=== PATIENT | female | born 2000 | race Caucasian/White ===

== ENCOUNTER → 2021-03-27 | Outpatient (CLI) | payer OTHER ==
--- NOTE | 2021-03-28 06:19 | REP ---
INDICATION: IRREGULAR MENSES COMPARISON: None. TECHNIQUE: Transabdominal pelvic ultrasound. FINDINGS: Bladder is unremarkable and measures 6.2 x 5.7 x 8.4 cm. Normal anteverted uterus measures 6.6 x 2.3 x 3.8 cm. The endometrial complex measures 4.8 mm thickness. No discrete uterine or endometrial abnormalities are appreciated. Bilateral ovaries are normal in appearance. Right ovary measures 2.7 x 1.5 x 1.9 cm. Left ovary measures 2.2 x 1.8 x 2.0 cm. IMPRESSION: Normal pelvic ultrasound Maida <Electronically signed by Lasha Cody > 03/28/21 [id number]
== END ==
LOC: M RAD 12:49
PROVIDERS: ATTEND Nurse Practitioner Family
DX: N92.6 Irregular menstruation, unspecified (principal)

== ENCOUNTER → 2022-01-08 | Outpatient (CLI) | payer OTHER ==
[2022-01-08 10:03] LABS: HEMATOCRIT 40.9 % (36.0-47.0); HEMOGLOBIN 13.5 g/dl (12.0-15.5); MEAN CORPUSCULAR HEMOGLOBIN 29.1 pg (27.0-33.0); MEAN CORPUSCULAR VOLUME 88.1 fl (80.0-96.0); PLATELET COUNT, AUTOMATED 296 10^3/uL (150-450); RED BLOOD COUNT 4.64 10^6/uL (4.00-5.40); WHITE BLOOD COUNT 7.9 10^3/uL (4.0-10.0)
[2022-01-08 10:33] LABS: ALBUMIN 3.9 GM/DL (3.2-5.2); ALT/SGPT 33 U/L (12-78); BILIRUBIN,TOTAL 0.4 MG/DL (0.2-1.0); BLOOD UREA NITROGEN 22 MG/DL (7-18); C REACTIVE PROTEIN QUANTITATIV 1.09 MG/DL (0.00-0.30); CALCIUM LEVEL 9.4 MG/DL (8.5-10.1); CARBON DIOXIDE LEVEL 28 MEQ/L (21-32); CHLORIDE LEVEL 107 MEQ/L (98-107); GLUCOSE, FASTING 94 MG/DL (70-100); POTASSIUM SERUM 4.2 MEQ/L (3.5-5.1); SODIUM LEVEL 140 MEQ/L (136-145); TOTAL PROTEIN 7.1 GM/DL (6.4-8.2)
[2022-01-08 10:34] LABS: ERYTHROCYTE SEDIMENTATION RATE 27 mm/hr (0-20)
== END ==
LOC: M LAB 09:25
PROVIDERS: ATTEND Nurse Practitioner Family
DX: R19.4 Change in bowel habit (principal)

== ENCOUNTER → 2022-01-16 | Outpatient (REF) | payer OTHER ==
[2022-01-21 14:08] LABS: CALPROTECTIN STOOL 22 ug/g (0-120); H PYLORI STOOL ANTIGEN Negative (Negative)
== END ==
LOC: M LAB REF 13:02
PROVIDERS: ATTEND Nurse Practitioner Family
DX: R19.4 Change in bowel habit (principal); R10.31 Right lower quadrant pain

== ENCOUNTER → 2024-01-29 | Outpatient (REF) | payer MEDICARE, OTHER ==
[2024-01-29 16:27] LABS: Trichomonas vaginalis (AMP) NOT DETECTED (NEGATIVE)
[2024-01-29 16:51] LABS: GC DNA AMPLIFICATION NEGATIVE (NEGATIVE)
== END ==
LOC: M PLALAB 11:45
PROVIDERS: ATTEND Advanced Practice Midwife
DX: Z12.4 Encounter for screening for malignant neoplasm of cervix (principal); Z11.3 Encounter for screening for infections with a predominantly sexual mode of transmission

== ENCOUNTER → 2024-01-29 | Outpatient (CLI) | payer OTHER ==
[2024-01-29 14:21] LABS: HEMOGLOBIN A1c 5.2 % (4.0-6.0)
== END ==
LOC: M PLALAB 11:30
PROVIDERS: ATTEND Advanced Practice Midwife
DX: L68.0 Hirsutism (principal); E66.01 Morbid (severe) obesity due to excess calories; Z12.4 Encounter for screening for malignant neoplasm of cervix

== ENCOUNTER → 2024-07-27 | Outpatient (CLI) | payer OTHER, SELFPAY ==
[2024-07-27 10:21] LABS: BASO # 0.1 10^3/uL (0.0-0.2); BASO % 0.5 % (0.0-1.0); EOS # 0.2 10^3/uL (0.0-0.5); EOS % 1.6 % (0.0-3.0); HEMATOCRIT 44.5 % (36.0-47.0); HEMOGLOBIN 14.8 g/dl (12.0-15.5); LYMPH # 3.8 10^3/uL (1.5-5.0); LYMPH % 32.3 % (24.0-44.0); MEAN CORPUSCULAR HEMOGLOBIN 31.6 pg (27.0-33.0); MEAN CORPUSCULAR HGB CONC 33.3 g/dl (32.0-36.5); MEAN CORPUSCULAR VOLUME 94.9 fl (80.0-96.0); MONO # 0.7 10^3/uL (0.0-0.8); MONO % 6.1 % (2.0-8.0); NEUTROPHILS # 6.9 10^3/uL (1.5-8.5); NEUTROPHILS % 59.2 % (36.0-66.0); PLATELET COUNT, AUTOMATED 316 10^3/uL (150-450); RED BLOOD COUNT 4.69 10^6/uL (4.00-5.40); WHITE BLOOD COUNT 11.7 10^3/uL (4.0-10.0)
[2024-07-27 11:36] LABS: TOTAL IRON BINDING CAPACITY 358 UG/DL (250-425)
[2024-07-27 11:37] LABS: ALBUMIN 3.6 G/DL (3.2-5.2); ALKALINE PHOSPHATASE 92 U/L (46-116); ALT/SGPT 30 U/L (7.0-40); AST/SGOT 11 U/L (<34); BILIRUBIN,TOTAL 0.2 MG/DL (0.3-1.2); BLOOD UREA NITROGEN 26 MG/DL (9-23); CALCIUM LEVEL 9.2 MG/DL (8.5-10.1); CARBON DIOXIDE LEVEL 26 MMOL/L (20-31); CHLORIDE LEVEL 108 MMOL/L (98-107); CHOLESTEROL LEVEL 197 MG/DL (<200); CHOLESTEROL RISK RATIO 4.19 (<5); CREATININE FOR GFR 0.87 MG/DL (0.55-1.30); GLOMERULAR FILTRATION RATE > 60.0 (>60); GLUCOSE, FASTING 88 MG/DL (60-100); IRON (FE) 57 UG/DL (50-170); LDL CHOLESTEROL 105.8 MG/DL (<100); PERCENT SATURATION 15.9 % (13.2-45.0); POTASSIUM SERUM 4.8 MMOL/L (3.5-5.1); SODIUM LEVEL 139 MMOL/L (136-145); TOTAL PROTEIN 6.7 G/DL (5.7-8.2); TRIGLYCERIDES LEVEL 221 MG/DL (<150)
[2024-07-27 11:38] LABS: TOTAL 25(OH) VITAMIN D 32.3 NG/ML (20.0-100.0)
[2024-07-27 11:39] LABS: FERRITIN 35.1 NG/ML (7.3-270.7); VITAMIN B12 LEVEL 403 PG/ML (211-911)
[2024-07-27 11:43] LABS: FOLATE 6.25 NG/ML (>5.4)
== END ==
LOC: M PLALAB 07:08
PROVIDERS: ATTEND Nurse Practitioner Family
DX: R53.83 Other fatigue (principal); E28.2 Polycystic ovarian syndrome

== ENCOUNTER → 2025-03-03 | Outpatient (REF) | payer OTHER ==
[2025-03-03 15:09] LABS: Trichomonas vaginalis (AMP) NOT DETECTED (NEGATIVE)
[2025-03-03 15:32] LABS: GC DNA AMPLIFICATION NEGATIVE (NEGATIVE)
== END ==
LOC: M PLALAB 11:37
PROVIDERS: ATTEND Advanced Practice Midwife
DX: Z01.419 Encounter for gynecological examination (general) (routine) without abnormal findings (principal); Z11.3 Encounter for screening for infections with a predominantly sexual mode of transmission

== ENCOUNTER 2025-05-13 08:23 | Emergency (ER) | payer OTHER ==
[~2025-05-13] VITALS: Ht 157.5 cm; Wt 100.4 kg
[~2025-05-13 08:23] MED LIST: ONDA-282 PO; PROM25TA12 PO; PROT20TA11 PO; SPIR50TA4 PO
[2025-05-13] MEDS ORDERED: ACET1TAB55 PO (08:40)
[2025-05-13] MEDS ORDERED: IBUP200T46 PO (08:40)
[2025-05-13 09:31] LABS: BASO # 0.0 10^3/uL (0.0-0.2); BASO % 0.4 % (0.0-1.0); EOS # 0.1 10^3/uL (0.0-0.5); EOS % 1.0 % (0.0-3.0); LYMPH # 0.4 10^3/uL (1.5-5.0); LYMPH % 5.7 % (24.0-44.0); MONO # 0.5 10^3/uL (0.0-0.8); MONO % 6.6 % (2.0-8.0); NEUTROPHILS # 6.3 10^3/uL (1.5-8.5); NEUTROPHILS % 85.9 % (36.0-66.0); PLATELET COUNT, AUTOMATED 240 10^3/uL (150-450)
[2025-05-13 09:57] LABS: CK-MB VALUE MASS < 1.0 NG/ML (<3.6)
[2025-05-13 09:59] LABS: ALT/SGPT 22 U/L (7.0-40); AST/SGOT 19 U/L (<34); CALCIUM LEVEL 9.1 MG/DL (8.5-10.1); CARBON DIOXIDE LEVEL 26 MMOL/L (20-31); CHLORIDE LEVEL 104 MMOL/L (98-107); CREATININE FOR GFR 0.91 MG/DL (0.55-1.30); GLOMERULAR FILTRATION RATE > 90.0 (>60); HCG, SERUM QUALITATIVE NEGATIVE (NEGATIVE); POTASSIUM SERUM 4.3 MMOL/L (3.5-5.1); SODIUM LEVEL 142 MMOL/L (136-145)
[2025-05-13 10:06] LABS: CPK CREATINE PHOSPHOKINASE 99 U/L (34-145)
[2025-05-13] MEDS ORDERED: PANT20TA6 PO (10:59)
[2025-05-13] MEDS ORDERED: HOME MED LIST COMPLETE! XX SCH (11:00)
[2025-05-13] MEDS ORDERED: SUCRALFATE SUSP 1GM/10ML UD PO ONE (11:15)
[2025-05-13] MEDS: LIDOCAINE VISCOUS 2% SOLN 15 ML UDC PO ONE (11:22)
[2025-05-13] MEDS: KETOROLAC 30 MG/ML 1 ML VIAL IV ONE (11:22)
[2025-05-13] MEDS: MAALOX 30 ML SUSP *UDC PO ONE (11:23)
[2025-05-13 12:30] VITALS: O2SAT 99
[2025-05-13 12:31] VITALS: BP 113/68; TEMP 97.4
== END 2025-05-13 12:48 | disposition home or self-care (01) ==
LOC: M ED 08:23
DX: R07.9 Chest pain, unspecified (principal); F12.10 Cannabis abuse, uncomplicated; Z79.899 Other long term (current) drug therapy
CPT/HCPCS: 71045; 80048; 80076; 82550; 82553; 83690; 84484; 84703; 85025; 93005; 93041; 94760; 96374; 99285; J1885

== ENCOUNTER → 2025-05-18 | Outpatient (CLI) | payer OTHER ==
[~2025-05-18] MED LIST changes: +ACET1TAB55 PO; +IBUP200T46 PO; +PANT20TA6 PO
== END ==
LOC: M RAD 07:26
PROVIDERS: ATTEND Nurse Practitioner Family
DX: R11.2 Nausea with vomiting, unspecified (principal)
CPT/HCPCS: 78227; A9537

== ENCOUNTER 2025-06-12 21:19 | Emergency (ER) | payer OTHER ==
[~2025-06-12] VITALS: Ht 157.5 cm; Wt 95.9 kg
[2025-06-12 21:26] VITALS: BP 124/83; TEMP 97.2; O2SAT 99
== END 2025-06-13 00:34 | disposition left against medical advice (07) ==
LOC: M ED 21:19
DX: Z53.21 Procedure and treatment not carried out due to patient leaving prior to being seen by health care provider (principal)